=== PATIENT | male | born 1945 | race Caucasian/White ===

== ENCOUNTER → 2020-06-19 | Outpatient (CLI) | payer BC | END | disposition home or self-care (01) | LOC: RAH 14:54 | PROVIDERS: ATTEND Orthopaedic Surgery | DX: M17.12 Unilateral primary osteoarthritis, left knee (principal) | CPT/HCPCS: 93926 ==

== ENCOUNTER → 2020-10-11 | Outpatient (CLI) | payer BC | END | disposition home or self-care (01) | LOC: RAH 14:29 | PROVIDERS: ATTEND Orthopaedic Surgery | DX: M17.12 Unilateral primary osteoarthritis, left knee (principal) | CPT/HCPCS: 73700 ==

== ENCOUNTER 2021-07-09 06:07 | Observation (INO) | payer BC, MEDICARE ==
[2021-07-04 12:52] LABS: BASOPHILS % (AUTO) 0.6 % (0.0-5.0); EOSINOPHILS % (AUTO) 1.1 % (0.0-8.0); HEMATOCRIT 43.8 % (42-54); LYMPHOCYTES % (AUTO) 37.4 % (21.0-51.0); MEAN CORPUSCULAR HGB CONC 33.1 g/dL (32.0-36.0); MEAN CORPUSCULAR VOLUME 90.5 fL (79-99); MONOCYTES % (AUTO) 9.2 % (3.0-13.0); NEUTROPHILS % (AUTO) 51.6 % (40.0-77.0); PLATELET COUNT (AUTO) 260 K/uL (130-400); RED BLOOD CELL COUNT(AUTO) 4.84 MIL/uL (4.50-6.20); RED CELL DISTRIBUTION WIDTH 13.6 % (11.0-15.5)
[2021-07-04 13:02] LABS: INR 1.06 (0.85-1.15); PROTHROMBIN TIME 11.5 SEC (9.6-11.6)
[2021-07-04 13:03] LABS: CREATININE 0.9 mg/dL (0.5-1.5); POTASSIUM 4.1 mmol/L (3.5-5.1)
[2021-07-04 13:04] LABS: PARTIAL THROMBOPLASTIN TIME 25.1 SEC (26.3-35.5)
[2021-07-08 10:08] VITALS: BP 144/79
[~2021-07-09] VITALS: Ht 185.4 cm; Wt 119.9 kg
[2021-07-09] VITALS (28 sets, daily range): BP systolic 104–148; BP diastolic 48–111
[2021-07-09] MEDS: CEFAZOLIN SODIUM 1 GM VIAL IVP SCH ×4 (06:00→21:29)
[~2021-07-09 06:07] MED LIST: ACET-2079 PO; AMLO-258 PO; ATOR-2 PO; CELE100C97 PO; CHOL100046 PO; DULO60CA64 PO; LACTATED RINGERS 1000ML 1,000 ML IV SCH; LOSA1TAB54 PO; METO-409 PO; SERT-440 PO; SITA1TAB2 PO
[2021-07-09] MEDS ORDERED: 0.9%NACL 1000ML 1,000 ML IV ONE (06:42)
[2021-07-09] MEDS ORDERED: PROPOFOL 1000 MG/100 ML 200 ML IV ONE (06:56)
[2021-07-09] MEDS ORDERED: NOREPINEPHRINE BITARTRATE 1 MG/1 ML ML IV ONE (06:57)
[2021-07-09] MEDS ORDERED: ROCURONIUM 10MG/1ML SYR 10 MG/ML ML ONE (07:02)
[2021-07-09] MEDS ORDERED: GLYCOPYRROLATE 1 MG/5 ML SYRINGE ONE (07:02)
[2021-07-09] MEDS ORDERED: FENTANYL CITRATE PF 50 MCG/1 ML 5ML AMP IV ONE (07:02)
[2021-07-09] MEDS ORDERED: TRANEXAMIC ACID 1000MG/10ML ONE (07:02)
[2021-07-09] MEDS ORDERED: ROPIVACAINE 0.5% 5MG/ML 30ML IJ ONE (07:13)
[2021-07-09] MEDS: 0.9%NACL 1000ML 1,000 ML IV SCH ×3 (07:30→23:21)
[2021-07-09] MEDS ORDERED: ONDANSETRON 4MG INJ IVP PRN (07:30)
[2021-07-09] MEDS ORDERED: LIDOCAINE HCL-MPF 1% 2ML VIAL IV PRN (07:30)
[2021-07-09] MEDS ORDERED: POTASSIUM CHLORIDE 10% ELIXIR 20 MEQ/15 ML UDCUP PO PRN (07:30)
[2021-07-09] MEDS ORDERED: MORPHINE 4 MG SYG IVP PRN (07:30)
[2021-07-09] MEDS ORDERED: CEFAZOLIN SODIUM 1 GM VIAL IVP SCH (07:30)
[2021-07-09] MEDS ORDERED: ACETAMINOPHEN 500 MG TABLET PO SCH (07:30)
[2021-07-09] MEDS: INSULIN HUMULIN R 100 UNIT/ML 3ML SQ SCH ×4 (07:30→21:00)
[2021-07-09] MEDS ORDERED: POTASSIUM CHLORIDE 20MEQ/100ML 100 ML IV PRN (07:30)
[2021-07-09] MEDS ORDERED: HYDROCODONE/ACETAMINOPHEN 5/325 MG TAB PO PRN (07:30)
[2021-07-09] MEDS ORDERED: KCL 20 MEQ ERTAB PO PRN (07:30)
[2021-07-09] MEDS ORDERED: LACTATED RINGERS 1000ML 1,000 ML IV SCH (07:30)
[2021-07-09] MEDS: METFORMIN HCL 500 MG TABLET PO SCH ×2 (08:00→17:59)
[2021-07-09] MEDS: LINAGLIPTIN 5 MG TABLET PO SCH ×2 (08:00→17:59)
[2021-07-09] MEDS ORDERED: ONDANSETRON 4MG INJ ONE (08:30)
[2021-07-09] MEDS: AMLODIPINE 5 MG TAB PO SCH ×2 (09:00→21:59)
[2021-07-09] MEDS ORDERED: METOPROLOL SUCCINATE 50 MG TAB.SR.24H PO SCH (09:00)
[2021-07-09] MEDS: DULOXETINE HCL 30 MG CAP PO SCH ×2 (09:00→21:59)
[2021-07-09] MEDS: FAMOTIDINE 20MG TAB PO SCH ×2 (09:00→21:29)
[2021-07-09] MEDS ORDERED: SITAGLIPTIN PHOS PO SCH (09:00)
[2021-07-09] MEDS: ASPIRIN 81 MG EC TAB PO SCH ×2 (09:00→21:29)
[2021-07-09] MEDS: POLYETHYLENE GLYCOL 3350 17 GM POWD.PACK PO SCH (09:00)
[2021-07-09] MEDS ORDERED: [UNRECOGNIZED DRUG - OTHER] PO SCH (09:00)
[2021-07-09] MEDS: CELECOXIB 100 MG CAP PO SCH ×2 (09:00→21:00)
[2021-07-09] MEDS ORDERED: METFORMIN HCL PO SCH (09:00)
[2021-07-09] MEDS: LOSARTAN/HYDROCHLOROTHIAZIDE 50-12.5MG TABLET PO SCH (09:00)
[2021-07-09] MEDS: SERTRALINE HCL 50 MG TABLET PO SCH (09:00)
[2021-07-09] MEDS ORDERED: NEOSTIGMINE 5MG/5ML SYR IV ONE (09:23)
[2021-07-09] MEDS ORDERED: MEPERIDINE-PF 25 MG/ML SYG ONE (10:38)
[2021-07-09] MEDS ORDERED: HYDROMORPHONE 1 MG INJ ONE (11:05)
[2021-07-09] MEDS: TRAMADOL HCL 50 MG TABLET PO SCH ×4 (12:00→23:17)
[2021-07-09] MEDS: HYDROCODONE/ACETAMINOPHEN 10/325 MG TAB PO PRN (14:28)
[2021-07-09] MEDS: CALDOLOR 800MG+NS 250ML 250 ML IV SCH ×2 (17:48→23:17)
[2021-07-09] MEDS: ACETAMINOPHEN 500 MG TABLET PO SCH (21:36)
[2021-07-09] MEDS ORDERED: SPIR25TA6 PO (21:52)
[2021-07-09] MEDS ORDERED: INVOK100TB PO (21:55)
[2021-07-09] MEDS ORDERED: ASPI-1197 PO (21:57)
[2021-07-09] MEDS ORDERED: MULT-1333 PO (21:57)
[2021-07-09] MEDS ORDERED: SAW450CA7 PO (21:57)
[2021-07-09] MEDS: METOPROLOL SUCCINATE 50 MG TAB.SR.24H PO SCH (22:00)
[2021-07-10 04:17] VITALS: BP 116/63
[2021-07-10 04:30] LABS: HEMATOCRIT 39.1 % (42-54); MEAN CORPUSCULAR HEMOGLOBIN 28.9 pg (27.0-33.0); MEAN CORPUSCULAR HGB CONC 30.9 g/dL (32.0-36.0); MEAN CORPUSCULAR VOLUME 93.3 fL (79-99); PLATELET COUNT (AUTO) 186 K/uL (130-400); RED BLOOD CELL COUNT(AUTO) 4.19 MIL/uL (4.50-6.20); RED CELL DISTRIBUTION WIDTH 13.7 % (11.0-15.5); WHITE BLOOD COUNT (AUTO) 10.4 K/uL (4.8-10.8)
[2021-07-10 04:58] LABS: CREATININE 0.9 mg/dL (0.5-1.5); POTASSIUM 3.6 mmol/L (3.5-5.1)
[2021-07-10] MEDS: ACETAMINOPHEN 500 MG TABLET PO SCH ×3 (06:17→20:32)
[2021-07-10] MEDS: TRAMADOL HCL 50 MG TABLET PO SCH ×4 (06:18→23:03)
[2021-07-10] MEDS: INSULIN HUMULIN R 100 UNIT/ML 3ML SQ SCH ×4 (06:21→20:33)
[2021-07-10 06:49] VITALS: BP 129/65
[2021-07-10] MEDS ORDERED: ROPIVICAINE 250MG+KETOROLAC 15MG+EPINEPHRINE 0.3+CLONIDINE 80 IV PRN ×5 (08:00)
[2021-07-10] MEDS: SERTRALINE HCL 50 MG TABLET PO SCH (08:56)
[2021-07-10] MEDS: ASPIRIN 81 MG EC TAB PO SCH ×2 (08:56→20:32)
[2021-07-10] MEDS: CELECOXIB 100 MG CAP PO SCH ×2 (08:56→20:32)
[2021-07-10] MEDS: POLYETHYLENE GLYCOL 3350 17 GM POWD.PACK PO SCH (08:57)
[2021-07-10] MEDS: LINAGLIPTIN 5 MG TABLET PO SCH ×2 (08:57→17:26)
[2021-07-10] MEDS: METFORMIN HCL 500 MG TABLET PO SCH ×2 (08:57→17:26)
[2021-07-10] MEDS: FAMOTIDINE 20MG TAB PO SCH ×2 (08:57→20:32)
[2021-07-10] MEDS: LOSARTAN/HYDROCHLOROTHIAZIDE 50-12.5MG TABLET PO SCH (09:00)
[2021-07-10] MEDS: HYDROCODONE/ACETAMINOPHEN 10/325 MG TAB PO PRN (09:04)
[2021-07-10 12:00] VITALS: BP 129/57
[2021-07-10 16:00] VITALS: BP 140/67
[2021-07-10] MEDS: METOPROLOL SUCCINATE 50 MG TAB.SR.24H PO SCH (20:31)
[2021-07-10] MEDS ORDERED: DULOXETINE HCL 30 MG CAP PO SCH (21:00)
[2021-07-10] MEDS ORDERED: AMLODIPINE 5 MG TAB PO SCH (21:00)
[2021-07-10 21:14] VITALS: BP 147/74
[2021-07-10 23:28] VITALS: BP 130/63
[2021-07-11 04:08] VITALS: BP 140/71
[2021-07-11] MEDS: INSULIN HUMULIN R 100 UNIT/ML 3ML SQ SCH (06:04)
[2021-07-11] MEDS: TRAMADOL HCL 50 MG TABLET PO SCH (06:19)
[2021-07-11] MEDS: ACETAMINOPHEN 500 MG TABLET PO SCH (06:19)
[2021-07-11 08:00] VITALS: BP 138/76
[2021-07-11] MEDS: CELECOXIB 100 MG CAP PO SCH (08:46)
[2021-07-11] MEDS: POLYETHYLENE GLYCOL 3350 17 GM POWD.PACK PO SCH (08:46)
[2021-07-11] MEDS: METFORMIN HCL 500 MG TABLET PO SCH (08:46)
[2021-07-11] MEDS: ASPIRIN 81 MG EC TAB PO SCH (08:46)
[2021-07-11] MEDS: LINAGLIPTIN 5 MG TABLET PO SCH (08:46)
[2021-07-11] MEDS: SERTRALINE HCL 50 MG TABLET PO SCH (08:46)
[2021-07-11] MEDS: FAMOTIDINE 20MG TAB PO SCH (08:46)
[2021-07-11] MEDS: LOSARTAN/HYDROCHLOROTHIAZIDE 50-12.5MG TABLET PO SCH (08:46)
[2021-07-12] MEDS ORDERED: BISACODYL 10 MG SUPP.RECT RC PRN (07:30)
== END 2021-07-11 10:15 | disposition home or self-care (01) ==
LOC: DAH 06:07 → DAHIP 07:04 → 4AH 11:41
PROVIDERS: ADMIT Orthopaedic Surgery; ATTEND Orthopaedic Surgery
DX: M17.12 Unilateral primary osteoarthritis, left knee (principal); Z20.822 Contact with and (suspected) exposure to COVID-19; Z96.652 Presence of left artificial knee joint; Z79.899 Other long term (current) drug therapy; Z98.890 Other specified postprocedural states
CPT/HCPCS: 27447; S2900; 36415; 64447; 76942; 80048; 82948; 85025; 85027; 85610; 85730; 87635; 93005; 96365; 96366; 96372; 96375; 96376; 97039; C9803; G0378; J0690; J1170; J1741; J1815; J2175; J2405; J2704; J2710; J2795; J3010; J3490; J7030; J7120

== ENCOUNTER → 2022-12-24 | Outpatient (CLI) | payer OTHER ==
[~2022-12-24] MED LIST changes: +ASPI-1197 PO; +CELE-146 PO; -CELE100C97 PO; +INVOK100TB PO; -LACTATED RINGERS 1000ML 1,000 ML IV SCH; +SAW450CA7 PO; +SPIR25TA6 PO
== END | disposition home or self-care (01) ==
LOC: RAH 13:48
PROVIDERS: ATTEND Internal Medicine Cardiovascular Disease
DX: Z13.6 Encounter for screening for cardiovascular disorders (principal); R07.9 Chest pain, unspecified
CPT/HCPCS: 75571